=== PATIENT | female | born 1990 | race African-American/Black ===

== ENCOUNTER 2020-05-29 09:05 | Emergency (ER) | payer MEDICAID ==
[~2020-05-29] VITALS: Ht 157.5 cm; Wt 59.0 kg
[2020-05-29 09:10] VITALS: BP 107/75
--- NOTE | 2020-05-29 09:19 | NUR ---
PT WHEELED TO ROOM 1 BY CARETAKERS.
--- NOTE | 2020-05-29 09:30 | NUR ---
Dr. Orozco is evaluating the patient at bedside.
[2020-05-29] MEDS ORDERED: NACL 0.9% 1,000 ML IV ONE (09:35)
--- NOTE | 2020-05-29 09:44 | NUR ---
Pt taken to xr via wheelchair
--- NOTE | 2020-05-29 09:53 | NUR ---
received pt from triage room. placed to bed 01. connected to cardiac and pulse ox monitoring. placed in gown. 29 year old female with hx of psychosis, MDD, anxiety coming from a board and care for c/o appetite loss for 3 days. per caregivers, pt is usually eating 3 times a day and now barely eats x 1 time. reports increased lethargy in the last two days with minimal voiding and elimination. pt is usually a/o x 0 and nonverbal. usually ambulatory but not ambulatory with assist. no other s/sx observed or reported.
--- NOTE | 2020-05-29 10:41 | NUR ---
# 08 FR straight Nunn catheter utilizing sterile technique. Immediate return of 40 ml clear urine noted. Urine sample collected and sent to lab. Pt tolerated procedure well
[2020-05-29 10:44] LABS: APPEARANCE,URINE CLEAR (CLEAR); BILIRUBIN,URINE 1+ (NEGATIVE); BLOOD, URINE NEGATIVE (NEGATIVE); COLOR,URINE YELLOW (YELLOW); LEUKOCYTE ESTERASE ,URINE TRACE (NEGATIVE); NITRITE, URINE NEGATIVE (NEGATIVE); UGLUCOSE NEGATIVE (NEGATIVE)
[2020-05-29 10:48] LABS: BASOPHILS % (AUTO) 0.6 % (0.0-2.0); EOSINOPHILS % (AUTO) 0.1 % (0.0-4.0); HEMATOCRIT 38.5 % (36-48); HEMOGLOBIN 12.9 g/dL (12.0-16.0); LYMPHOCYTES # (AUTO) 1.6 K/uL (2.5-16.5); LYMPHOCYTES % (AUTO) 27.3 % (20.5-51.1); MEAN CORPUSCULAR HEMOGLOBIN 30 pg (27-31); MEAN CORPUSCULAR HGB CONC 33 g/dL (33-37); MEAN CORPUSCULAR VOLUME 90.3 fL (80-94); MONOCYTES # (AUTO) 0.3 K/uL (0.8-1.0); MONOCYTES % (AUTO) 5.8 % (1.7-9.3); NEUTROPHILS # (AUTO) 3.9 K/uL (1.8-7.7); NEUTROPHILS % (AUTO) 66.2 % (42.2-75.2); PLATELET COUNT (AUTO) 157 K/uL (140-450); RED BLOOD CELL COUNT(AUTO) 4.27 MIL/uL (4.20-5.40); RED CELL DISTRIBUTION WIDTH 12.8 % (11.6-13.7); WHITE BLOOD COUNT (AUTO) 5.9 K/uL (4.8-10.8)
[2020-05-29 10:58] LABS: ALBUMIN 3.8 g/dL (3.4-5.0); ANION GAP 10.6 (8-16); CREATININE 1.2 mg/dL (0.6-1.3); POTASSIUM 3.6 mmol/L (3.5-5.1); TOTAL BILIRUBIN 0.5 mg/dL (0.0-1.0)
[2020-05-29 11:04] VITALS: BP 107/75
[2020-05-29 11:05] LABS: RBC,URINE NONE SEEN /HPF (0-5)
--- NOTE | 2020-05-29 11:14 | NUR ---
pt remains laying down in bed in semi fowlers position. 2 caregivers at bedside. VSS. IV site patent and flushable.
[2020-05-29] MEDS ORDERED: DOCU-2 PO (11:33)
[2020-05-29] MEDS ORDERED: NITR100C1 PO (11:33)
--- NOTE | 2020-05-29 11:49 | NUR ---
d/c pt with VSS. d/c education given to caregivers also. opportunity to ask question given and answered .rx of nitrofurantoin and colace given. IV site removed and bleeding controlled with sterile gauze and reinforced with tape.
== END 2020-05-29 09:19 | disposition home or self-care (01) ==
LOC: MED 09:05
DX: K59.00 Constipation, unspecified (principal); N39.0 Urinary tract infection, site not specified; Z79.899 Other long term (current) drug therapy
CPT/HCPCS: 36415; 74021; 80053; 81001; 81025; 83605; 85025; 87086; 96360; 99284; J7030

== ENCOUNTER 2020-06-10 14:21 | Emergency (ER) | payer MEDICAID ==
[~2020-06-10] VITALS: Ht 170.2 cm; Wt 59.0 kg
[~2020-06-10 14:21] MED LIST: DOCU-2 PO; NITR100C1 PO
[2020-06-10 14:25] VITALS: BP 121/77
--- NOTE | 2020-06-10 16:10 | NUR ---
[facility], CG STATES THAT PATIENT HAS NOT HAD BM SINCE 05/29, PT HAS PASSED SMALL MARSHALL PAST FEW DAYS. PMH: PARTIALLY BLIND, SEVERE INTELLECTUAL DISABILITY, NON VERBAL NKDA
--- NOTE | 2020-06-10 16:17 | NUR ---
PT HAD ONE EPISODE OF VOMITING. PA MADE AWARE. PT CHANGED INTO GOWN, LINENS CHANGED.
--- NOTE | 2020-06-10 16:20 | NUR ---
RAD AT BEDSIDE
[2020-06-10] MEDS ORDERED: GLYPS RC (16:51)
[2020-06-10] MEDS ORDERED: MIRABULK PO (16:51)
[2020-06-10] MEDS ORDERED: GLYCERIN ADULT 1 SUPP RC ONE ×2 (17:10→17:12)
[2020-06-10 17:25] VITALS: BP 121/77
== END 2020-06-10 17:25 | disposition home or self-care (01) ==
LOC: MED 14:21
DX: K59.00 Constipation, unspecified (principal); Z79.899 Other long term (current) drug therapy
CPT/HCPCS: 74018; 99283

== ENCOUNTER 2022-04-19 12:01 | Emergency (ER) | payer MEDICAID ==
[~2022-04-19] VITALS: Ht 165.1 cm; Wt 59.4 kg
[~2022-04-19 12:01] MED LIST changes: +MIRABULK PO
[2022-04-19 12:06] VITALS: BP 124/88
--- NOTE | 2022-04-19 12:16 | NUR ---
PT WAS PUT ON BED 6. CAREGIVER BEDSIDE WITH PT.
--- NOTE | 2022-04-19 12:29 | NUR ---
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 PCP RECOMMEDED FOR HER TO GO ER PER CRM SYSTEM ADMINISTRATOR. HX OF AUTISM AND PSYCHOSIS. SEVERE MENTAL DIBIBILITY. NKA PER CRM SYSTEM ADMINISTRATOR.
--- NOTE | 2022-04-19 12:36 | NUR ---
DR COX AT BEDSIDE.
[2022-04-19 13:29] LABS: BILIRUBIN,URINE 1+ (NEGATIVE); BLOOD, URINE NEGATIVE (NEGATIVE); COLOR,URINE YELLOW (YELLOW); LEUKOCYTE ESTERASE ,URINE TRACE (NEGATIVE); NITRITE, URINE POSITIVE (NEGATIVE); PH,URINE 5.5 (5.0-9.0); UGLUCOSE NEGATIVE (NEGATIVE)
[2022-04-19 13:36] LABS: APPEARANCE,URINE SLIGHTLY HAZY (CLEAR)
[2022-04-19 13:37] LABS: RBC,URINE NONE SEEN /HPF (0-5); WBC,URINE 0-5 /HPF (0-5)
[2022-04-19] MEDS ORDERED: CEPH-588 PO (13:50)
[2022-04-19 13:57] VITALS: BP 124/88
--- NOTE | 2022-04-19 13:57 | NUR ---
Patient discharged with v/s stable. Written and verbal after care instructions given and explained. Patient alert, oriented and verbalized understanding of instructions. Ambulatory with STEADY GAIT by caregiver. All questions addressed prior to discharge. ID band removed. Patient advised to follow up with PMD. Rx of given. Patient educated on indication of medication including possible reaction and side effects. Opportunity to ask questions provided and answered. RX: KEFELX (SENT)
--- NOTE | 2022-04-19 13:57 | NUR ---
The patient's care was reviewed and supervised by Lubna Prabhakar, RN, RN.
== END 2022-04-19 13:57 | disposition home or self-care (01) ==
LOC: MED 12:01
DX: N39.0 Urinary tract infection, site not specified (principal); Z79.899 Other long term (current) drug therapy; Z79.2 Long term (current) use of antibiotics
CPT/HCPCS: 81001; 81025; 99283

== ENCOUNTER 2023-04-23 14:17 | Inpatient (IN) | payer MEDICAID ==
[~2023-04-23] VITALS: Ht 152.4 cm; Wt 49.9 kg
[~2023-04-23 14:17] MED LIST changes: +CEPH-588 PO
[2023-04-23 14:51] VITALS: BP 115/75; PULSE 124; RESP 20; TEMP 98; O2SAT 98
[2023-04-23] MEDS: NACL 0.9% 1,000 ML IV ONE (16:06)
[2023-04-23 16:37] LABS: BASOPHILS % (AUTO) 0.2 % (0.0-2.0); LYMPHOCYTES # (AUTO) 1.3 K/uL (2.5-16.5); LYMPHOCYTES % (AUTO) 17.9 % (20.5-51.1); MEAN CORPUSCULAR HEMOGLOBIN 18 pg (27-31); MEAN CORPUSCULAR HGB CONC 30 g/dL (33-37); MEAN CORPUSCULAR VOLUME 62.2 fL (80-94); MONOCYTES # (AUTO) 0.8 K/uL (0.8-1.0); NEUTROPHILS % (AUTO) 70.9 % (42.2-75.2); PLATELET COUNT (AUTO) 438 K/uL (140-450); RED BLOOD CELL COUNT(AUTO) 3.13 MIL/uL (4.20-5.40); RED CELL DISTRIBUTION WIDTH 21.9 % (11.6-13.7); WHITE BLOOD COUNT (AUTO) 7.1 K/uL (4.8-10.8)
[2023-04-23 16:53] LABS: ALBUMIN 3.1 g/dL (3.4-5.0); BILIRUBIN,DIRECT 0.1 mg/dL (0.0-0.3); TOTAL BILIRUBIN 0.3 mg/dL (0.0-1.0)
[2023-04-23 16:59] LABS: LACTIC ACID 2.6 mmol/L (0.4-2.0)
[2023-04-23 17:01] LABS: ANION GAP 13.5 (8-16); CALCIUM 8.6 mg/dL (8.5-10.1); CARBON DIOXIDE 24.8 mmol/L (21-32); POTASSIUM 3.3 mmol/L (3.5-5.1)
[2023-04-23 17:10] LABS: HEMATOCRIT 19.5 % (36-48); HEMOGLOBIN 5.8 g/dL (12.0-16.0)
[2023-04-23 17:44] LABS: BILIRUBIN,URINE 2+ (NEGATIVE); BLOOD, URINE NEGATIVE (NEGATIVE); COLOR,URINE YELLOW (YELLOW); LEUKOCYTE ESTERASE ,URINE TRACE (NEGATIVE); NITRITE, URINE NEGATIVE (NEGATIVE); PROTEIN,URINE 1+ (NEGATIVE); UGLUCOSE NEGATIVE (NEGATIVE); UROBILINOGEN,URINE 0.2 EU/dL (0.2 - 1)
[2023-04-23 17:47] LABS: APPEARANCE,URINE SLIGHTLY CLOUDY (CLEAR)
[2023-04-23 17:53] LABS: ICTOTEST POSITIVE (NEGATIVE); RBC,URINE 0 /HPF (0-5); WBC,URINE 0-5 /HPF (0-5)
[2023-04-23 17:54] LABS: BACTERIA,URINE 1+ /HPF (None Seen); MUCUS,URINE None Seen /LPF (None Seen); SQUAMOUS EPITHELIAL CELL,UR 0-3 (FEW) /LPF (0-3 (FEW))
[2023-04-23] MEDS ORDERED: MAGN400S60 PO (18:35)
[2023-04-23] MEDS ORDERED: MENT250L TP (18:35)
[2023-04-23] MEDS ORDERED: [UNRECOGNIZED DRUG - CODE] PO (18:35)
[2023-04-23] MEDS ORDERED: LACT10PA2 PO (18:35)
[2023-04-23] MEDS ORDERED: CALC-1646 PO (18:35)
[2023-04-23] MEDS ORDERED: MIRT-120 PO (18:35)
[2023-04-23] MEDS ORDERED: SERT50TA PO (18:35)
[2023-04-23] MEDS ORDERED: cefTRIAXone 1,000 MG VIAL ONE (18:48)
[2023-04-23] MEDS ORDERED: ALBUTEROL 0.083% 2.5 MG/3 ML NEBU INH PRN (19:15)
[2023-04-23] MEDS ORDERED: ONDANSETRON 4 MG/2 ML VIAL IVP PRN (19:15)
[2023-04-23] MEDS: NACL 0.9% 1,000 ML IV SCH (19:15)
[2023-04-23] MEDS ORDERED: LORazepam 2 MG/ML VIAL IVP PRN (19:15)
[2023-04-23] MEDS ORDERED: ACETAMINOPHEN 325 MG TAB PO PRN (19:15)
[2023-04-23] MEDS ORDERED: HYDROcodone/APAP 5/325 MG 1 TAB TAB PO PRN (19:15)
[2023-04-23] MEDS ORDERED: POLY30DR2 OP (19:33)
[2023-04-23] MEDS ORDERED: TRAZ-343 PO (19:33)
[2023-04-23 21:47] VITALS: PULSE 110
[2023-04-23 21:49] VITALS: BP 105/61; PULSE 109; RESP 18; TEMP 98.7; O2SAT 98
[2023-04-23] MEDS: POTASSIUM CHLORIDE 10 MEQ TABER PO ONE ×2 (23:39→23:57)
[2023-04-24] VITALS (9 sets, daily range): BP systolic 107–137; BP diastolic 66–89; PULSE 85–107; RESP 18–19; TEMP 96.8–97.9; O2SAT 98–100
[2023-04-24 02:38] LABS: BASOPHILS % (AUTO) 0.2 % (0.0-2.0); EOSINOPHILS % (AUTO) 0.1 % (0.0-4.0); LYMPHOCYTES % (AUTO) 33.9 % (20.5-51.1); MEAN CORPUSCULAR HEMOGLOBIN 21 pg (27-31); MEAN CORPUSCULAR HGB CONC 31 g/dL (33-37); MEAN CORPUSCULAR VOLUME 67.4 fL (80-94); MONOCYTES # (AUTO) 0.6 K/uL (0.8-1.0); MONOCYTES % (AUTO) 10.8 % (1.7-9.3); NEUTROPHILS # (AUTO) 3.3 K/uL (1.8-7.7); PLATELET COUNT (AUTO) 356 K/uL (140-450); RED CELL DISTRIBUTION WIDTH 27.7 % (11.6-13.7)
[2023-04-24 02:41] LABS: HEMATOCRIT 20.9 % (36-48); HEMOGLOBIN 6.5 g/dL (12.0-16.0)
[2023-04-24] MEDS: LACTULOSE 20 GM/30 ML UDC PO SCH (09:01)
[2023-04-24] MEDS: risperiDONE 1 MG TAB PO SCH (09:02)
[2023-04-24] MEDS: SERTRALINE 50 MG TAB PO SCH (09:02)
[2023-04-24] MEDS: CALCIUM CARB/VIT-D 500 MG/200 IU 1 TAB PO SCH (09:02)
[2023-04-24 09:28] LABS: BASOPHILS % (AUTO) 0.3 % (0.0-2.0); HEMATOCRIT 27.4 % (36-48); HEMOGLOBIN 8.6 g/dL (12.0-16.0); LYMPHOCYTES # (AUTO) 1.1 K/uL (2.5-16.5); LYMPHOCYTES % (AUTO) 25.5 % (20.5-51.1); MEAN CORPUSCULAR HEMOGLOBIN 23 pg (27-31); MEAN CORPUSCULAR HGB CONC 32 g/dL (33-37); MEAN CORPUSCULAR VOLUME 72.1 fL (80-94); MONOCYTES # (AUTO) 0.4 K/uL (0.8-1.0); MONOCYTES % (AUTO) 9.9 % (1.7-9.3); NEUTROPHILS # (AUTO) 2.9 K/uL (1.8-7.7); NEUTROPHILS % (AUTO) 64.3 % (42.2-75.2); PLATELET COUNT (AUTO) 368 K/uL (140-450); RED BLOOD CELL COUNT(AUTO) 3.79 MIL/uL (4.20-5.40); RED CELL DISTRIBUTION WIDTH 28.6 % (11.6-13.7); WHITE BLOOD COUNT (AUTO) 4.5 K/uL (4.8-10.8)
[2023-04-24] MEDS: FERROUS SULFATE 325 MG TABEC PO SCH (17:14)
[2023-04-25] VITALS (7 sets, daily range): BP systolic 100–124; BP diastolic 60–71; PULSE 75–100; RESP 17–19; TEMP 97.8–99.5; O2SAT 97–100
[2023-04-25 05:22] LABS: BASOPHILS % (AUTO) 0.3 % (0.0-2.0); HEMATOCRIT 25.8 % (36-48); HEMOGLOBIN 7.9 g/dL (12.0-16.0); LYMPHOCYTES # (AUTO) 1.4 K/uL (2.5-16.5); LYMPHOCYTES % (AUTO) 27.1 % (20.5-51.1); MEAN CORPUSCULAR HEMOGLOBIN 22 pg (27-31); MEAN CORPUSCULAR HGB CONC 31 g/dL (33-37); MEAN CORPUSCULAR VOLUME 72.7 fL (80-94); MONOCYTES # (AUTO) 0.5 K/uL (0.8-1.0); MONOCYTES % (AUTO) 10.4 % (1.7-9.3); NEUTROPHILS # (AUTO) 3.1 K/uL (1.8-7.7); NEUTROPHILS % (AUTO) 62.2 % (42.2-75.2); PLATELET COUNT (AUTO) 340 K/uL (140-450); RED BLOOD CELL COUNT(AUTO) 3.55 MIL/uL (4.20-5.40); RED CELL DISTRIBUTION WIDTH 28.4 % (11.6-13.7); WHITE BLOOD COUNT (AUTO) 5.1 K/uL (4.8-10.8)
[2023-04-25 05:52] LABS: ANION GAP 11.3 (8-16); CALCIUM 7.9 mg/dL (8.5-10.1); CARBON DIOXIDE 22.6 mmol/L (21-32); CREATININE 0.8 mg/dL (0.6-1.3); POTASSIUM 3.9 mmol/L (3.5-5.1)
[2023-04-25] MEDS ORDERED: CIPR500T4 PO (09:03)
[2023-04-25] MEDS ORDERED: FERR325E14 PO (09:03)
[2023-04-25] MEDS: SODIUM FERRIC GLUCONATE 125 MG in NACL 0.9% 100 ML IV SCH (09:57)
== END 2023-04-25 12:30 | disposition home or self-care (01) | DRG 663 ==
LOC: MED 14:17 → MTU 19:17
PROVIDERS: ADMIT Family Medicine; ATTEND Family Medicine
PROC: 30233N1 Transfusion of Nonautologous Red Blood Cells into Peripheral Vein, Percutaneous Approach (ICD-10-PCS; principal; 2023-04-23)
DX: D50.9 Iron deficiency anemia, unspecified (principal); G93.41 Metabolic encephalopathy; E43 Unspecified severe protein-calorie malnutrition; E87.20 Acidosis, unspecified; E86.0 Dehydration; E87.6 Hypokalemia; N39.0 Urinary tract infection, site not specified; Z68.21 Body mass index [BMI] 21.0-21.9, adult; Z79.899 Other long term (current) drug therapy
CPT/HCPCS: 36415; 71045; 80048; 80076; 81001; 83605; 85025; 86886; 86900; 86901; 86920; 87040; 87081; 87086; 87186; 93005; J0696; J2916; J7060; P9016

== ENCOUNTER 2023-05-11 18:26 | Inpatient (IN) | payer MEDICAID ==
[~2023-05-11] VITALS: Ht 157.5 cm; Wt 47.6 kg
[~2023-05-11 18:26] MED LIST changes: +CALC-1646 PO; -CEPH-588 PO; +CIPR500T4 PO; -DOCU-2 PO; +FERR325E14 PO; +LACT10PA2 PO; +MAGN400S60 PO; +MENT250L TP; -MIRABULK PO; +MIRT-120 PO; -NITR100C1 PO; +POLY30DR2 OP; +SERT50TA PO; +TRAZ-343 PO; +[UNRECOGNIZED DRUG - CODE] PO
[2023-05-11 18:46] VITALS: BP 103/77; PULSE 110; RESP 18; TEMP 97.7; O2SAT 100
[2023-05-11 20:30] LABS: HEMOGLOBIN 9.9 g/dL (12.0-16.0); WHITE BLOOD COUNT (AUTO) 8.1 K/uL (4.8-10.8)
[2023-05-11 20:34] LABS: BASOPHILS % (AUTO) 0.6 % (0.0-2.0); EOSINOPHILS % (AUTO) 0.2 % (0.0-4.0); HEMATOCRIT 31.1 % (36-48); LYMPHOCYTES % (AUTO) 24.8 % (20.5-51.1); MEAN CORPUSCULAR HEMOGLOBIN 24 pg (27-31); MEAN CORPUSCULAR HGB CONC 32 g/dL (33-37); MEAN CORPUSCULAR VOLUME 75.5 fL (80-94); MONOCYTES # (AUTO) 0.6 K/uL (0.8-1.0); MONOCYTES % (AUTO) 7.7 % (1.7-9.3); NEUTROPHILS # (AUTO) 5.4 K/uL (1.8-7.7); NEUTROPHILS % (AUTO) 66.7 % (42.2-75.2); PLATELET COUNT (AUTO) 334 K/uL (140-450); RED BLOOD CELL COUNT(AUTO) 4.12 MIL/uL (4.20-5.40); RED CELL DISTRIBUTION WIDTH 29.8 % (11.6-13.7)
[2023-05-11 20:41] LABS: ANION GAP 14.1 (8-16); CALCIUM 8.8 mg/dL (8.5-10.1); CARBON DIOXIDE 26.4 mmol/L (21-32); POTASSIUM 3.5 mmol/L (3.5-5.1)
[2023-05-11 20:42] LABS: INR 1.06 (0.8-1.2); PROTHROMBIN TIME 11.1 secs (10.8-13.4)
[2023-05-11 20:48] LABS: ALBUMIN 3.4 g/dL (3.4-5.0); BILIRUBIN,DIRECT 0.1 mg/dL (0.0-0.3); TOTAL BILIRUBIN 0.3 mg/dL (0.0-1.0); TOTAL PROTEIN, SERUM 7.2 g/dL (6.4-8.2)
[2023-05-12] MEDS: ONDANSETRON 4 MG/2 ML VIAL IVP ONE (01:13)
[2023-05-12] MEDS ORDERED: ONDANSETRON 4 MG/2 ML VIAL IM/IVP PRN (01:20)
[2023-05-12] MEDS ORDERED: guaiFENesin DM 200/20 MG-10 ML 10 ML UDC PO PRN (01:20)
[2023-05-12] MEDS ORDERED: ACETAMINOPHEN 325 MG TAB PO PRN (01:20)
[2023-05-12] MEDS ORDERED: POTASSIUM CHLORIDE 10 MEQ TABER PO PRN (01:20)
[2023-05-12] MEDS ORDERED: ZOLPIDEM 5 MG TAB PO PRN (01:20)
[2023-05-12] MEDS: NACL 0.9% 1,000 ML IV SCH (03:29)
[2023-05-12 07:09] LABS: BASOPHILS # (AUTO) 0.1 K/uL (0.00-0.22); BASOPHILS % (AUTO) 1.4 % (0.0-2.0); EOSINOPHILS % (AUTO) 0.1 % (0.0-4.0); HEMATOCRIT 28.8 % (36-48); HEMOGLOBIN 9.2 g/dL (12.0-16.0); LYMPHOCYTES # (AUTO) 1.5 K/uL (2.5-16.5); LYMPHOCYTES % (AUTO) 29.3 % (20.5-51.1); MEAN CORPUSCULAR HEMOGLOBIN 24 pg (27-31); MEAN CORPUSCULAR HGB CONC 32 g/dL (33-37); MONOCYTES # (AUTO) 0.5 K/uL (0.8-1.0); NEUTROPHILS # (AUTO) 3.2 K/uL (1.8-7.7); NEUTROPHILS % (AUTO) 60.2 % (42.2-75.2); PLATELET COUNT (AUTO) 307 K/uL (140-450); RED BLOOD CELL COUNT(AUTO) 3.84 MIL/uL (4.20-5.40); RED CELL DISTRIBUTION WIDTH 29.4 % (11.6-13.7); WHITE BLOOD COUNT (AUTO) 5.3 K/uL (4.8-10.8)
[2023-05-12 07:57] LABS: ALBUMIN 2.9 g/dL (3.4-5.0); ANION GAP 11.2 (8-16); CALCIUM 8.5 mg/dL (8.5-10.1); CARBON DIOXIDE 26.7 mmol/L (21-32); CREATININE 0.9 mg/dL (0.6-1.3); MAGNESIUM 1.9 mg/dL (1.8-2.4); PHOSPHORUS 4.3 mg/dL (2.5-4.9); POTASSIUM 3.9 mmol/L (3.5-5.1); TOTAL BILIRUBIN 0.3 mg/dL (0.0-1.0)
[2023-05-12] MEDS: PANTOPRAZOLE 40 MG TABEC PO SCH (08:20)
[2023-05-12] MEDS ORDERED: PANTOPRAZOLE 40 MG TABEC PO SCH (09:00)
[2023-05-12] MEDS: DOCUSATE SODIUM 100 MG GELCAP PO PRN (11:05)
[2023-05-12] MEDS: HYDROcodone/APAP 7.5/325 MG 1 TAB PO PRN (11:06)
[2023-05-12 19:00] VITALS: PULSE 107; RESP 16; O2SAT 100
[2023-05-12 20:00] VITALS: BP 118/71; PULSE 106; PULSE 107; RESP 18; TEMP 96.6; O2SAT 100
[2023-05-12 20:05] VITALS: PULSE 107
[2023-05-13] VITALS (8 sets, daily range): BP systolic 104–116; BP diastolic 55–79; PULSE 74–124; RESP 18–20; TEMP 97.4–98.8; O2SAT 96–100
[2023-05-13 06:08] LABS: BASOPHILS % (AUTO) 0.3 % (0.0-2.0); EOSINOPHILS % (AUTO) 0.1 % (0.0-4.0); HEMOGLOBIN 8.4 g/dL (12.0-16.0); LYMPHOCYTES # (AUTO) 1.4 K/uL (2.5-16.5); MEAN CORPUSCULAR HEMOGLOBIN 24 pg (27-31); MEAN CORPUSCULAR HGB CONC 32 g/dL (33-37); MEAN CORPUSCULAR VOLUME 75.9 fL (80-94); MONOCYTES # (AUTO) 0.5 K/uL (0.8-1.0); MONOCYTES % (AUTO) 5.9 % (1.7-9.3); NEUTROPHILS # (AUTO) 6.3 K/uL (1.8-7.7); NEUTROPHILS % (AUTO) 76.7 % (42.2-75.2); PLATELET COUNT (AUTO) 278 K/uL (140-450); RED BLOOD CELL COUNT(AUTO) 3.43 MIL/uL (4.20-5.40); RED CELL DISTRIBUTION WIDTH 28.6 % (11.6-13.7); WHITE BLOOD COUNT (AUTO) 8.2 K/uL (4.8-10.8)
[2023-05-13 06:45] LABS: ALBUMIN 2.6 g/dL (3.4-5.0); ANION GAP 12.8 (8-16); CALCIUM 7.8 mg/dL (8.5-10.1); CREATININE 0.7 mg/dL (0.6-1.3); POTASSIUM 3.8 mmol/L (3.5-5.1); TOTAL BILIRUBIN 0.4 mg/dL (0.0-1.0); TOTAL PROTEIN, SERUM 5.7 g/dL (6.4-8.2)
[2023-05-13] MEDS: fentaNYL citrate 0.05 MG/ML VIAL ONE (09:25)
[2023-05-13] MEDS: MIDAZOLAM 5 MG/5 ML VIAL ONE (09:25)
[2023-05-13] MEDS: MIDAZOLAM 2 MG/2 ML VIAL IV ONE (09:52)
[2023-05-13] MEDS: fentaNYL citrate 0.05 MG/ML VIAL IVP ONE (09:52)
[2023-05-13] MEDS: bisacodyL 5 MG TABEC PO SCH (12:01)
[2023-05-13] MEDS: LUBIPROSTONE 24 MCG CAPSULE PO SCH (16:37)
[2023-05-14] VITALS (7 sets, daily range): BP systolic 108–114; BP diastolic 62–76; PULSE 92–125; RESP 18–19; TEMP 97.6–98.8; O2SAT 95–100
[2023-05-14 07:28] LABS: BASOPHILS % (AUTO) 0.6 % (0.0-2.0); EOSINOPHILS % (AUTO) 0.1 % (0.0-4.0); HEMATOCRIT 28.9 % (36-48); HEMOGLOBIN 9.2 g/dL (12.0-16.0); LYMPHOCYTES % (AUTO) 15.5 % (20.5-51.1); MEAN CORPUSCULAR HEMOGLOBIN 24 pg (27-31); MEAN CORPUSCULAR HGB CONC 32 g/dL (33-37); MEAN CORPUSCULAR VOLUME 76.2 fL (80-94); MONOCYTES # (AUTO) 0.6 K/uL (0.8-1.0); MONOCYTES % (AUTO) 9.9 % (1.7-9.3); NEUTROPHILS # (AUTO) 4.7 K/uL (1.8-7.7); NEUTROPHILS % (AUTO) 73.9 % (42.2-75.2); PLATELET COUNT (AUTO) 300 K/uL (140-450); RED CELL DISTRIBUTION WIDTH 28.4 % (11.6-13.7); WHITE BLOOD COUNT (AUTO) 6.4 K/uL (4.8-10.8)
[2023-05-14] MEDS ORDERED: FENTANYL C 0.05 MG/HR PATCH TD SCH (07:35)
[2023-05-14 08:02] LABS: ALBUMIN 2.7 g/dL (3.4-5.0); ANION GAP 13.2 (8-16); CALCIUM 8.2 mg/dL (8.5-10.1); CARBON DIOXIDE 23.6 mmol/L (21-32); CREATININE 0.8 mg/dL (0.6-1.3); POTASSIUM 3.8 mmol/L (3.5-5.1); TOTAL BILIRUBIN 0.3 mg/dL (0.0-1.0); TOTAL PROTEIN, SERUM 6.1 g/dL (6.4-8.2)
[2023-05-15] VITALS: BP 109/75; PULSE 114; PULSE 124; RESP 18; TEMP 97.5; O2SAT 99
[2023-05-15 04:00] VITALS: BP 115/74; PULSE 110; PULSE 113; RESP 18; TEMP 99.1; O2SAT 99
[2023-05-15 05:29] LABS: BASOPHILS % (AUTO) 0.3 % (0.0-2.0); EOSINOPHILS % (AUTO) 0.1 % (0.0-4.0); HEMATOCRIT 34.3 % (36-48); LYMPHOCYTES # (AUTO) 1.4 K/uL (2.5-16.5); LYMPHOCYTES % (AUTO) 19.2 % (20.5-51.1); MEAN CORPUSCULAR HEMOGLOBIN 24 pg (27-31); MEAN CORPUSCULAR HGB CONC 32 g/dL (33-37); MEAN CORPUSCULAR VOLUME 75.7 fL (80-94); MONOCYTES # (AUTO) 0.6 K/uL (0.8-1.0); MONOCYTES % (AUTO) 8.1 % (1.7-9.3); NEUTROPHILS # (AUTO) 5.1 K/uL (1.8-7.7); NEUTROPHILS % (AUTO) 72.3 % (42.2-75.2); PLATELET COUNT (AUTO) 350 K/uL (140-450); RED BLOOD CELL COUNT(AUTO) 4.52 MIL/uL (4.20-5.40); RED CELL DISTRIBUTION WIDTH 27.7 % (11.6-13.7)
[2023-05-15 06:08] LABS: ALBUMIN 3.3 g/dL (3.4-5.0); ANION GAP 20.2 (8-16); CALCIUM 9.3 mg/dL (8.5-10.1); CARBON DIOXIDE 20.1 mmol/L (21-32); CREATININE 0.8 mg/dL (0.6-1.3); POTASSIUM 4.3 mmol/L (3.5-5.1); TOTAL BILIRUBIN 0.5 mg/dL (0.0-1.0); TOTAL PROTEIN, SERUM 7.3 g/dL (6.4-8.2)
[2023-05-15 08:00] VITALS: BP 125/64; PULSE 128; RESP 18; TEMP 98.4; O2SAT 95; O2SAT 99
[2023-05-15 12:00] VITALS: BP 132/85; PULSE 121; PULSE 128; RESP 18; TEMP 98.5; O2SAT 98
[2023-05-15 16:00] VITALS: BP 114/65; PULSE 113; PULSE 120; RESP 18; TEMP 97.9; O2SAT 100
[2023-05-15 20:00] VITALS: BP 126/66; PULSE 112; PULSE 127; RESP 18; TEMP 97.7; O2SAT 100; O2SAT 95
[2023-05-16] VITALS: BP 119/74; PULSE 112; PULSE 123; RESP 18; TEMP 98.1; O2SAT 100
[2023-05-16 04:00] VITALS: BP 112/68; PULSE 104; PULSE 133; RESP 18; TEMP 97.8; O2SAT 100
[2023-05-16 06:03] LABS: BASOPHILS % (AUTO) 0.4 % (0.0-2.0); EOSINOPHILS % (AUTO) 0.1 % (0.0-4.0); HEMATOCRIT 35.6 % (36-48); HEMOGLOBIN 11.4 g/dL (12.0-16.0); LYMPHOCYTES # (AUTO) 1.5 K/uL (2.5-16.5); LYMPHOCYTES % (AUTO) 19.8 % (20.5-51.1); MEAN CORPUSCULAR HEMOGLOBIN 24 pg (27-31); MEAN CORPUSCULAR HGB CONC 32 g/dL (33-37); MEAN CORPUSCULAR VOLUME 76.1 fL (80-94); MONOCYTES # (AUTO) 0.7 K/uL (0.8-1.0); NEUTROPHILS # (AUTO) 5.1 K/uL (1.8-7.7); NEUTROPHILS % (AUTO) 69.7 % (42.2-75.2); PLATELET COUNT (AUTO) 341 K/uL (140-450); RED BLOOD CELL COUNT(AUTO) 4.67 MIL/uL (4.20-5.40); RED CELL DISTRIBUTION WIDTH 27.4 % (11.6-13.7); WHITE BLOOD COUNT (AUTO) 7.3 K/uL (4.8-10.8)
[2023-05-16 06:18] LABS: ALBUMIN 3.4 g/dL (3.4-5.0); ANION GAP 17.7 (8-16); CALCIUM 9.1 mg/dL (8.5-10.1); CARBON DIOXIDE 22.2 mmol/L (21-32); CREATININE 0.8 mg/dL (0.6-1.3); POTASSIUM 3.9 mmol/L (3.5-5.1); TOTAL BILIRUBIN 0.5 mg/dL (0.0-1.0); TOTAL PROTEIN, SERUM 7.4 g/dL (6.4-8.2)
[2023-05-16 08:00] VITALS: BP 115/82; PULSE 112; PULSE 127; RESP 18; TEMP 97.7; O2SAT 100; O2SAT 95
[2023-05-16 12:00] VITALS: BP 111/76; PULSE 123; PULSE 126; RESP 18; TEMP 97.6; O2SAT 98
[2023-05-16] MEDS: DOCUSATE 100 MG/10 ML UDC PO SCH ×2 (12:23→20:46)
[2023-05-16] MEDS: POLYETHYLENE GLYCOL 17 GM/PKT PO SCH ×2 (12:23→20:47)
[2023-05-16 16:00] VITALS: BP 113/82; PULSE 129; RESP 18; TEMP 97.4; O2SAT 92
[2023-05-16 20:00] VITALS: BP 120/81; PULSE 129; PULSE 133; RESP 18; RESP 20; TEMP 98.2; O2SAT 92; O2SAT 95
[2023-05-17] VITALS (7 sets, daily range): BP systolic 110–127; BP diastolic 74–96; PULSE 61–144; RESP 16–20; TEMP 96.8–97.5; O2SAT 92–98
[2023-05-17 05:57] LABS: BASOPHILS # (AUTO) 0.1 K/uL (0.00-0.22); BASOPHILS % (AUTO) 0.8 % (0.0-2.0); EOSINOPHILS % (AUTO) 0.2 % (0.0-4.0); HEMATOCRIT 38.4 % (36-48); HEMOGLOBIN 12.3 g/dL (12.0-16.0); LYMPHOCYTES # (AUTO) 1.8 K/uL (2.5-16.5); LYMPHOCYTES % (AUTO) 19.9 % (20.5-51.1); MEAN CORPUSCULAR HEMOGLOBIN 24 pg (27-31); MEAN CORPUSCULAR HGB CONC 32 g/dL (33-37); MEAN CORPUSCULAR VOLUME 76.1 fL (80-94); MONOCYTES # (AUTO) 0.7 K/uL (0.8-1.0); MONOCYTES % (AUTO) 8.3 % (1.7-9.3); NEUTROPHILS # (AUTO) 6.3 K/uL (1.8-7.7); NEUTROPHILS % (AUTO) 70.8 % (42.2-75.2); PLATELET COUNT (AUTO) 443 K/uL (140-450); RED BLOOD CELL COUNT(AUTO) 5.05 MIL/uL (4.20-5.40); RED CELL DISTRIBUTION WIDTH 27.4 % (11.6-13.7); WHITE BLOOD COUNT (AUTO) 8.9 K/uL (4.8-10.8)
[2023-05-17 06:37] LABS: ALBUMIN 3.8 g/dL (3.4-5.0); ANION GAP 20.3 (8-16); CALCIUM 10.2 mg/dL (8.5-10.1); CREATININE 0.9 mg/dL (0.6-1.3); POTASSIUM 4.3 mmol/L (3.5-5.1); TOTAL BILIRUBIN 0.4 mg/dL (0.0-1.0); TOTAL PROTEIN, SERUM 8.4 g/dL (6.4-8.2)
[2023-05-18] VITALS (7 sets, daily range): BP systolic 111–133; BP diastolic 75–88; PULSE 123–153; RESP 18–19; TEMP 97.5–98; O2SAT 98–100
[2023-05-18 05:41] LABS: ALBUMIN 4.2 g/dL (3.4-5.0); ANION GAP 21.6 (8-16); CALCIUM 11.4 mg/dL (8.5-10.1); CARBON DIOXIDE 22.9 mmol/L (21-32); CREATININE 1.1 mg/dL (0.6-1.3); POTASSIUM 4.5 mmol/L (3.5-5.1); TOTAL BILIRUBIN 0.5 mg/dL (0.0-1.0); TOTAL PROTEIN, SERUM 9.3 g/dL (6.4-8.2)
[2023-05-18 06:07] LABS: BASOPHILS # (AUTO) 0.1 K/uL (0.00-0.22); BASOPHILS % (AUTO) 0.6 % (0.0-2.0); EOSINOPHILS % (AUTO) 0.1 % (0.0-4.0); HEMATOCRIT 42.5 % (36-48); HEMOGLOBIN 13.8 g/dL (12.0-16.0); LYMPHOCYTES # (AUTO) 1.3 K/uL (2.5-16.5); LYMPHOCYTES % (AUTO) 12.3 % (20.5-51.1); MEAN CORPUSCULAR HEMOGLOBIN 25 pg (27-31); MEAN CORPUSCULAR HGB CONC 33 g/dL (33-37); MEAN CORPUSCULAR VOLUME 76.2 fL (80-94); MONOCYTES # (AUTO) 0.9 K/uL (0.8-1.0); MONOCYTES % (AUTO) 8.7 % (1.7-9.3); NEUTROPHILS # (AUTO) 8.5 K/uL (1.8-7.7); NEUTROPHILS % (AUTO) 78.3 % (42.2-75.2); PLATELET COUNT (AUTO) 508 K/uL (140-450); RED BLOOD CELL COUNT(AUTO) 5.58 MIL/uL (4.20-5.40); RED CELL DISTRIBUTION WIDTH 27.9 % (11.6-13.7); WHITE BLOOD COUNT (AUTO) 10.8 K/uL (4.8-10.8)
[2023-05-18] MEDS: SODIUM PHOSPHATE 118 ML ENEM RC SCH (09:24)
[2023-05-18] MEDS: LACTULOSE 20 GM/30 ML UDC PO SCH (11:20)
[2023-05-18] MEDS ORDERED: DOCU-299 PO (13:12)
[2023-05-18] MEDS ORDERED: SENN-73 PO (13:12)
== END 2023-05-18 16:00 | disposition home or self-care (01) | DRG 253 ==
LOC: MED 18:26 → MTU 05-12 01:21
PROVIDERS: ADMIT Student in an Organized Health Care Education/Training Program; ATTEND Student in an Organized Health Care Education/Training Program
PROC: 0DJ08ZZ Inspection of Upper Intestinal Tract, Via Natural or Artificial Opening Endoscopic (ICD-10-PCS; principal; 2023-05-13 13:00)
DX: K92.2 Gastrointestinal hemorrhage, unspecified (principal); F29 Unspecified psychosis not due to a substance or known physiological condition; K22.6 Gastro-esophageal laceration-hemorrhage syndrome; F79 Unspecified intellectual disabilities; K44.9 Diaphragmatic hernia without obstruction or gangrene; D50.9 Iron deficiency anemia, unspecified; F84.0 Autistic disorder; D64.9 Anemia, unspecified; Z79.899 Other long term (current) drug therapy; Z68.1 Body mass index [BMI] 19.9 or less, adult
CPT/HCPCS: 36415; 71045; 74018; 80048; 80053; 80076; 83690; 83735; 84100; 85025; 85610; 86886; 86900; 86901; 87081; 96374; 99285; J2250; J2405; J3010; Q0092